=== PATIENT | female | born 1970 | race Asian ===

== ENCOUNTER 2018-07-01 05:04 | Emergency (ER) | payer SELFPAY ==
[~2018-07-01] VITALS: Ht 162.6 cm; Wt 82.7 kg
[2018-07-01] MEDS ORDERED: METHOCARBAMOL 750 MG TABLET ONE (05:27)
[2018-07-01] MEDS ORDERED: KETOROLAC 30 MG/1 ML ONE (05:27)
[2018-07-01] MEDS ORDERED: KETOROLAC 30 MG/1 ML IM ONE (05:30)
[2018-07-01] MEDS ORDERED: METHOCARBAMOL 750 MG TABLET PO ONE (05:30)
--- NOTE | 2018-07-01 05:34 | NUR ---
pt medicated for pain. pt reports waking up with pain from her neck down her back. pt family at bed stated she placed pain patches on with no relief. pt to xray now, educated pt and family member on fall risk after meds. will apply monitors when pt back from imaging.
--- NOTE | 2018-07-01 05:59 | NUR ---
pt back from imaging and applied monitors. no needs at this time. pt reports pain relief from meds and is resting with eyes closed.
--- NOTE | 2018-07-01 06:52 | NUR ---
report to [facility]
--- NOTE | 2018-07-01 06:54 | NUR ---
Recieved bedside report from RAULITO Finney. All questions answered. NADN. Pt resting on gurney connected to all monitors. Pt's family member at bedside. No needs expressed at this time.
--- NOTE | 2018-07-01 07:05 | NUR ---
Patient and her son given discharge instructions and they have confirmed that they understand the instructions. Patient ambulatory with steady gait. Pt left with all personal belongings, discharge paperwork, and prescriptions. Pt states before medication pain was a 7/10, after medication per emar her pain is a 2/10.
[2018-07-01 07:06] VITALS: BP 149/86
== END 2018-07-01 07:08 | disposition home or self-care (01) ==
LOC: ED 06:15
DX: S16.1XXA Strain of muscle, fascia and tendon at neck level, initial encounter (principal); X58.XXXA Exposure to other specified factors, initial encounter; Y93.89 Activity, other specified; Y92.89 Other specified places as the place of occurrence of the external cause; Y99.8 Other external cause status
CPT/HCPCS: 72050; 96372; 99283; J1885